=== PATIENT | female | born 1985 ===

== ENCOUNTER 2018-04-11 16:09 | Emergency (ER) | payer MEDICAID, OTHER ==
[2018-04-11 16:19] VITALS: BMI 29.5
--- NOTE | 2018-04-11 16:24 | ED PDOC ---
Arrival/HPI - General Historian: Patient - History of Present Illness Narrative History of Present Illness (Text): 04/11/18 16:19 32 y/o female, no significant pmh, nkda, c/o flu like symptoms x 2 days. Pt. stated that she has runny nose/cough/fever/bodyache x 2 days, been taking sudafed and drinking coffee with it, no recent traveling, no chest pain or shortness of breath, no palpitation, no night sweat, no dizziness, no change in vision, no other medical or psychological complaints. Past Medical History - Provider Review Nursing Documentation Reviewed: Yes - Past History Past History: Non-Contributing - Infectious Disease Hx of Infectious Diseases: None - Tetanus Immunization Tetanus Immunization: Unknown - Past Medical History Past Medical History: Non-Contributing - Psychiatric Hx Psychophysiologic Disorder: No Hx Substance Use: Yes (marijuana) - Surgical History Other/Comment: L knee surgery August 2015 - Anesthesia Hx Anesthesia: Yes Hx Anesthesia Reactions: No Family/Social History - Physician Review Nursing Documentation Reviewed: Yes Family/Social History: Unknown Family HX Smoking Status: Light Smoker < 10 Cigarettes Daily Hx Alcohol Use: Yes Hx Substance Use: Yes (marijuana) Allergies/Home Meds Allergies/Adverse Reactions: Allergies No Known Allergies Allergy (Verified 02/15/16 09:41) Review of Systems - Review of Systems Constitutional: Fatigue, Fevers Eyes: absent: Vision Changes ENT: Rhinorrhea. absent: Hearing Changes Respiratory: Cough, Sputum. absent: SOB, Wheezing Cardiovascular: absent: Chest Pain Gastrointestinal: absent: Abdominal Pain, Nausea, Vomiting Musculoskeletal: absent: Arthralgias, Back Pain Skin: absent: Rash, Pruritis Neurological: absent: Headache, Dizziness Psychiatric: absent: Anxiety, Depression, Suicidal Ideation Physical Exam - Systems Exam Head: Present: Atraumatic, Normocephalic Pupils: Present: PERRL Extroacular Muscles: Present: EOMI Conjunctiva: Present: Normal Ears: Present: NORMAL TM, Normal Canal. No: Erythema Mouth: Present: Moist Mucous Membranes Nose (External): Present: Atraumatic. No: Abrasion, Contusion Nose (Internal): Present: Normal Inspection, No Active Bleeding, Rhinorrhea. No: Septal Deviation, Septal Hematoma, Epistaxis Neck: Present: Normal Range of Motion, Trachea Midline. No: Meningeal Signs, MIDLINE TENDERNESS, Paraspinal Tenderness, Lymphadenopathy Respiratory/Chest: Present: Clear to Auscultation, Good Air Exchange. No: Respiratory Distress, Accessory Muscle Use, Wheezes, Decreased Breath Sounds, Rales, Retracting, Rhonchi, Tachypneic, Tender to Palpation Cardiovascular: Present: Regular Rate and Rhythm, Normal S1, S2. No: Murmurs Abdomen: No: Tenderness, Distention, Peritoneal Signs, Rebound, Guarding Back: Present: Normal Inspection Upper Extremity: Present: Normal Inspection. No: Cyanosis, Edema Lower Extremity: Present: Normal Inspection. No: Edema Neurological: Present: GCS=15, CN II-XII Intact, Speech Normal, Motor Func Grossly Intact, Gait Normal, Memory Normal Skin: Present: Warm, Dry, Normal Color. No: Rashes Psychiatric: Present: Alert, Oriented x 3, Normal Insight, Normal Concentration Medical Decision Making ED Course and Treatment: 04/11/18 16:28 -urine hcg -rapid flu -cxr -motrin/benadryl -observe and reassess 04/11/18 17:26 -Repeated HR 92, advised to stop taking sudafed with coffee and take the prescribed medications. -Urine hcg is negative -EKG: Sinus Tachycardia @ 108 BPM, no ST elevation or depression, no T wave inversion. -cxr show concerning for lt. pneumonia, discussed with the patient to avoid gym/exercise as the levaquin can causes achilles tendon rupture or prolong QT, educated to avoid gym/exercise while taking this medication. Pt. verbally expressed understanding. Pt. refused labs. -PERC negative, no pleuritic pain or palpitation/shortness of breath. -rapid flu is negative, clinical suspicious is high -UA show no obvious UTI and no urinary symptoms, urine culture ordered. -Pt. feels much better. -Discharge home with levaquin, tamiflu, tylenol, bromfed dm, stay hydrated, follow up with your own pmd within 2 days, avoid gym/exercise while taking levaquin, return to the ER for any new or worsening signs or symptoms. - RAD Interpretation Radiology Orders: HISTORY: cough with productive phlegm, r/o pneumonia COMPARISON: No prior. TECHNIQUE: Chest PA and lateral FINDINGS: LUNGS: Lingular consolidation. Please note that chest x-ray has limited sensitivity for the detection of pulmonary masses. PLEURA: No significant pleural effusion identified. No definite pneumothorax . CARDIOVASCULAR: Partially obscured left heart border. Otherwise cardiac size appears within normal limits. No atherosclerotic calcification present. OSSEOUS STRUCTURES: No acute osseous abnormality identified. VISUALIZED UPPER ABDOMEN: Unremarkable. OTHER FINDINGS: None. IMPRESSION: Lingular consolidation consistent with pneumonia. Correlate clinically. Associate Vice President: Radiologist - PA / RUBBER CURER / Resident Statement / has reviewed & agrees with the documentation as recorded. Disposition/Present on Arrival - Present on Arrival Any Indicators Present on Arrival: No History of DVT/PE: No History of Uncontrolled Diabetes: No Urinary Catheter: No History of Decub. Ulcer: No History Surgical Site Infection Following: None - Disposition Have Diagnosis and Disposition been Completed?: Yes Diagnosis: Flu-like symptoms, Pneumonia Disposition: HOME/ ROUTINE Disposition Time: 16:32 Condition: IMPROVED Additional Instructions: -Discharge home with levaquin, tamiflu, tylenol, bromfed dm, stay hydrated, follow up with your own pmd within 2 days, avoid gym/exercise while taking levaquin, return to the ER for any new or worsening signs or symptoms. Prescriptions: Acetaminophen [Tylenol] 2 cap PO QID PRN #30 capsule PRN Reason: Other Brompheniramine/Pseudoephed/Dm [Bromfed Dm Cough Syrup] 10 ml PO QID PRN #150 ml PRN Reason: Other Levofloxacin [Levaquin] 750 mg PO DAILY #5 tablet Oseltamivir Phosphate [Tamiflu] 75 mg PO BID #10 capsule Referrals: [facility] [place]] - Follow up with primary Forms: WORK NOTE
[2018-04-11] MEDS ORDERED: DiphenhydrAMINE 12.5 mg/5 ml LIQ UD (5 ml) PO STA (16:26)
[2018-04-11 16:48] VITALS: TEMP 98
[2018-04-11 17:05] LABS: URINE BILIRUBIN NEGATIVE (NEGATIVE); URINE BLOOD NEGATIVE (NEGATIVE); URINE GLUCOSE (UA) NEGATIVE (NEGATIVE); URINE LEUKOCYTE ESTERASE TRACE Leu/uL (NEGATIVE); URINE PROTEIN NEGATIVE mg/dL (<30 mg/dL); URINE UROBILINOGEN 0.2 E.U./dL (<1 E.U./dL)
[2018-04-11 17:06] LABS: URINE APPEARANCE CLEAR (CLEAR); URINE COLOR YELLOW (YELLOW)
[2018-04-11 17:12] LABS: URINE BACTERIA TRACE (NEG); URINE RBC 0 - 2 /hpf (0-2); URINE WBC 0 - 2 /hpf (0-6)
[2018-04-11 17:27] VITALS: BP 120/68; PULSE 92; RESP 16; O2SAT 97
--- NOTE | 2018-04-11 18:08 | RAD ---
HISTORY: cough with productive phlegm, r/o pneumonia COMPARISON: No prior. TECHNIQUE: Chest PA and lateral FINDINGS: LUNGS: Lingular consolidation. Please note that chest x-ray has limited sensitivity for the detection of pulmonary masses. PLEURA: No significant pleural effusion identified. No definite pneumothorax . CARDIOVASCULAR: Partially obscured left heart border. Otherwise cardiac size appears within normal limits. No atherosclerotic calcification present. OSSEOUS STRUCTURES: No acute osseous abnormality identified. VISUALIZED UPPER ABDOMEN: Unremarkable. OTHER FINDINGS: None. IMPRESSION: Lingular consolidation consistent with pneumonia. Correlate clinically. Findings discussed with GAVIN Wolf on 04/11/18
--- NOTE | 2018-04-12 20:00 | CARD ---
APPROVED REPORT Date of service: 04/11/2018 EKG Measurement Heart [id number] <Conclusion> Sinus tachycardia Otherwise normal ECG
== END 2018-04-11 18:06 | disposition home or self-care (01) ==
LOC: ED 16:09
DX: J18.9 Pneumonia, unspecified organism (principal); J11.1 Influenza due to unidentified influenza virus with other respiratory manifestations; F17.210 Nicotine dependence, cigarettes, uncomplicated